=== PATIENT | female | born 1940 | race Caucasian/White ===

== ENCOUNTER → 2018-01-18 | Day surgery (SDC) | payer MEDICARE, BC ==
[2018-01-17 16:38] LABS: BASOPHILS % 0.4 % (0.0-1.0); EOSINOPHILS # (AUTO) 0.2 (0.0-0.4); EOSINOPHILS % 2.6 % (0.0-6.0); HEMOGLOBIN 13.2 g/dL (12.0-16.0); LYMPHOCYTES % 28.8 % (18.0-39.1); MEAN CORPUSCULAR HEMOGLOBIN 31.2 pg (28-32); MEAN CORPUSCULAR HGB CONC 33.8 g/dL (31-35); MEAN CORPUSCULAR VOLUME 92.2 fL (81-99); MONOCYTES # (AUTO) 0.4 (0.2-0.8); MONOCYTES % 6.1 % (4.4-11.3); NEUTROPHILS # (AUTO) 4.3 (2.1-6.9); PLATELET COUNT 230 x10e3/uL (140-360); RED BLOOD COUNT 4.23 x10e6/uL (3.6-5.1); RED CELL DISTRIBUTION WIDTH 13.2 % (11.7-14.4)
[2018-01-17 16:54] LABS: BLOOD UREA NITROGEN 19 mg/dL (7-26); BUN/CREATININE RATIO 29 (6-25); CALCIUM 10.6 mg/dL (8.4-10.2); CARBON DIOXIDE 27 mmol/L (22-29); CHLORIDE 106 mmol/L (98-107); CREATININE, SERUM 0.66 mg/dL (0.57-1.11); EST GLOMERULAR FILTRATION RATE > 60 ML/MIN (60-); GLUCOSE 95 mg/dL (74-118); SODIUM 140 mmol/L (136-145)
[~2018-01-18] MED LIST: ACETAMINOPHEN 1000 MG/100 ML IV ONE; AMLODIPINE BESY10 MG PO; BENAZEPRIL HCL10 MG PO; BUPIVACAINE HCL 0.5% INJ 30 ML VIAL INJ ONE; CEFAZOLIN SOD 1 GM VIAL ONE; DEXAMETHASONE SOD PHOS INJ 4 MG/ML VIAL ONE; FENTANYL CITRATE/PF 100MCG/2 ML INJ ONE; GLYCOPYRROLATE INJ 1MG/ 5 ML SYR ONE; LIDOCAINE HCL 2% LOCAL INJ 5 ML SDV VIAL INJ ONE; ONDANSETRON HCL INJ 2 MG/ML VIAL ONE; PROPOFOL IV EMULSION 10 MG/ML 20 ML VIAL ONE; SEVOFLURANE INHAL SOLN 250 ML PEN BTL ONE; VESICARE5 MG PO
--- NOTE | 2018-01-18 07:31 | Diagnostic Imaging Report ---
PROCEDURE: Frontal and lateral views of the chest. COMPARISON: None. INDICATIONS: PREOP CXR. Fracture of the first metatarsal bone. FINDINGS: Lines/tubes: None. Lungs: The lungs are well inflated and clear. There is no evidence of pneumonia or pulmonary edema. Pleura: There is no pleural effusion or pneumothorax. Heart and mediastinum: The heart and the mediastinum are normal. Bones: No acute bony abnormality. IMPRESSION: No acute cardiopulmonary disease. Dictated by: Anoop Billingsley M.D. on 01/17/2018 at 16:54 Electronically approved by: Anoop Billingsley M.D. on 01/17/2018 at 16:54
--- NOTE | 2018-01-19 14:15 | Operative Report ---
DATE OF PROCEDURE: January 18, 2018 PREOPERATIVE DIAGNOSIS: Right foot metatarsal fracture. POSTOPERATIVE DIAGNOSIS: Right foot metatarsal fracture. PLANNED PROCEDURE: Right 1st metatarsal open reduction and internal fixation. SURGEON: Shy BAUMAN DPM SAILING INSTRUCTOR: Will Vasquez DPM. ANESTHESIA: General with a postoperative block consisting of 10 mL of 0.5% Marcaine plain. ESTIMATED BLOOD LOSS: Less than 10 mL. PATHOLOGY: None. MATERIALS: Small 1st ray plate [employer]; two 2.7-mm x 16-mm locking screws; two 2.7-mm x 18-mm locking screws; 2-0 Vicryl; 3-0 Vicryl; 4-0 Prolene. DETAILS OF PROCEDURE: Patient was seen in the preoperative waiting room where the correct procedure and site were identified. The patient was brought to the operating room and placed on the operating table in the supine position. General anesthesia was initiated at this time. A well-padded pneumatic tourniquet was placed about the patient's right thigh. The right foot, ankle and leg were then scrubbed, prepped and draped in the usual aseptic manner. The right foot, ankle and leg were exsanguinated with an Esmarch bandage, and the pneumatic thigh tourniquet was inflated to 350 mmHg for a total time of approximately 30 minutes. Attention was directed the dorsomedial aspect of the patient's right foot where a bony prominence was noted along the base of the 1st metatarsal, likely the displaced fracture fragment. A 6-cm curvilinear incision was made directly over the 1st metatarsocuneiform to the level of the shaft of the 1st metatarsal. The incision was carried through subcutaneous tissues, them from deeper underlying structures. All vital neurovascular structures were identified and retracted medially and laterally. All bleeders were cauterized or ligated as deemed necessary. At this time, utilizing a [place] elevator and intraoperative fluoroscopy, the fracture site was easily identified. It should be noted upon examination of the bone that the fracture was dorsally and laterally displaced and the quality of the bone was very poor. It was very soft, and there were multiple fragments noted. Based on the quality of the bone, the decision was made not to place an interfragmentary screw, as it would likely cause cortical bone to shatter, and there was minimal medullary bone. The decision was made to proceed with ORIF using a locking plate fixation. Utilizing a 0.045 K-wire, a temporary guide pin was placed into the base of the 1st metatarsal, after anatomically reducing the 1st metatarsal and confirming this with intraoperative fluoroscopy. Per supervisor body assembly protocol, 1 small 1st ray plate was applied along the dorsomedial aspect of the patient's right 1st metatarsal. Two 2.7-mm x 18-mm locking screws and two 2.7-mm x 16-mm locking screws were placed. Fixation site is stable. This was confirmed via intraoperative fluoroscopy. The wound was then flushed with copious amounts of sterile saline. Deep tissues were reapproximated with 2-0 Vicryl, subcutaneous tissue with 3-0 Vicryl, and the skin was closed using a running interlocking stitch with 4-0 Prolene. The incision site was dressed with Adaptic, 4 x 4's, Webril, posterior splint, 4-inch Isidoro wrap, and 6-inch Isidoro wrap. The patient tolerated the procedure and anesthesia well. Patient was transferred to the postoperative recovery unit with vital signs stable and vascular status intact. Patient was monitored there for a short period time before being sent home with the following written and oral instructions: 1. Keep the dressing clean, dry and intact. 2. The patient is to remain nonweightbearing to the right lower extremity and to avoid any ambulation until being seen in the office. 3. Patient was given the office number and instructed to contact us if any problems should arise. Dictated by Will Vasquez DPM. Job#: [id number] [facility] [place]
== END | disposition home or self-care (01) ==
LOC: OR 05:30
PROVIDERS: ATTEND Podiatrist Foot & Ankle Surgery
DX: S92.311A Displaced fracture of first metatarsal bone, right foot, initial encounter for closed fracture (principal); I10 Essential (primary) hypertension; X58.XXXA Exposure to other specified factors, initial encounter; Z01.810 Encounter for preprocedural cardiovascular examination; Z01.812 Encounter for preprocedural laboratory examination; Z01.818 Encounter for other preprocedural examination
CPT/HCPCS: 28485; 36415; 71046; 80048; 85025; 93005; J0690; J1100; J2001; J2405; J3490